=== PATIENT | female | born 1950 | race Caucasian/White ===

== ENCOUNTER 2020-07-06 12:53 | Inpatient (IN) | payer MEDICARE, SELFPAY ==
[~2020-07-06 12:53] MED LIST: Iopamidol-370 76% 500 ML 1 ML ONE
[2020-07-06 13:12] LABS: #Basophils 0.1 thou/uL (0.0-0.2); #Eosinphils 0.1 thou/uL (0.0-0.7); #Lymphocytes 1.2 thou/uL (1.20-3.40); #Monocytes 0.4 thou/uL (0.11-0.59); #Neutrophils 2.2 thou/uL (1.40-6.50); %Basophils 1.8 % (0.0-1.0); %Eosinophils 3.2 % (0.0-10.0); %Lymphocytes 30.5 % (21.0-51.0); %Monocytes 10.3 % (0.0-10.0); %Neutrophils 54.3 % (42.0-75.0); Hemoglobin 12.5 g/dL (12.0-16.0); Mean Corpuscular HGB CONC 34.1 g/dL (32.0-36.0); Mean Corpuscular Hemoglobin 31.3 pg (27.0-31.0); Mean Corpuscular Volume 91.7 fL (78.0-98.0); Mean Platelet Volume 8.9 fL (7.4-10.4); Platelet Count 196 thou/uL (130-400); Red Blood Cell (RBC) Count 3.99 mill/uL (4.20-5.40); White Blood Cell (WBC) Count 4.1 thou/uL (4.8-10.8)
[2020-07-06 13:27] LABS: INR-International Normal Ratio 0.9; PTT 26.8 sec (22.9-36.1); Prothrombin Time 12.4 sec (12.0-14.7)
[2020-07-06] MEDS ORDERED: niCARdipine 20MG In NaCl 20 MG/200 ML BAG ONE (13:27)
[2020-07-06] MEDS ORDERED: Rocuronium Bromide 10 MG/ML (10ML VIAL) ONE (13:27)
[2020-07-06 13:29] LABS: ALT (SGPT) 13 U/L (8-55); AST (SGOT) 20 U/L (5-34); Albumin 4.2 g/dL (3.4-4.8); Alkaline Phosphatase 88 U/L (40-110); Anion Gap 12 mmol/L (10-20); BUN (Urea Nitrogen) 17 mg/dL (9.8-20.1); Bilirubin, Total 0.4 mg/dL (0.2-1.2); CK (CPK) 48 U/L (29-168); Calc. Creatinine Clearance 0 mL/min (70-130); Calcium 9.8 mg/dL (7.8-10.44); Carbon Dioxide 29 mmol/L (23-31); Chloride 100 mmol/L (98-107); Glucose 131 mg/dL (80-115); Lipase 27 U/L (8-78); Potassium 3.5 mmol/L (3.5-5.1); Protein, Total 7.2 g/dL (5.8-8.1); Sodium 137 mmol/L (136-145)
[2020-07-06 14:36] LABS: Analyzer IN Cardio ER; Base Excess (BEa) 2.9 mEq/L (-2.0 to +3.0); Calcium, Ionized (arterial) 1.16 mmol/L (1.12-1.30); Carboxyhemoglobin (COHb) 0.3 gm% (0.0-3.0); Hemoglobin (Hb) 13.2 g/dL (12.0-16.0); Potassium - ABG Lab 2.86 mmol/L (3.70-5.30)
[2020-07-06 14:41] LABS: Puncture Site RRA
[2020-07-06] MEDS ORDERED: Fentanyl 100 MCG/2 ML VIAL ONE ×3 (14:42→15:14)
[2020-07-06 14:50] LABS: SARS-CoV-2 NAA Rapid Test Not Detected (NotDetected)
[2020-07-06] MEDS ORDERED: fentaNYL Citrate/PF 2,000 MCG in Sodium Chloride 0.9% 60 ML IV SCH (15:15)
[2020-07-06] MEDS ORDERED: Fentanyl BOLUS 250 ML IVPB PRN (15:30)
[2020-07-06] MEDS ORDERED: Ventilator Sedation Protocol 1 EACH FS SCH (15:30)
[2020-07-06] MEDS ORDERED: DISCONTINUE PREVIOUS NARCOTIC PAIN MEDICATIONS AND BENZODIAZEPINES FS SCH (15:30)
[2020-07-06] MEDS ORDERED: Propofol BOLUS 1,000 MG/100 ML VIAL IV PRN (15:30)
[2020-07-06] MEDS ORDERED: Propofol 1,000 MG/100 ML VIAL IV PRN (15:30)
[2020-07-06] MEDS ORDERED: Fentanyl CADD 100 ML IV SCH (15:30)
[2020-07-06] MEDS ORDERED: niCARdipine 25 MG in Sodium Chloride 0.9% 250 ML 250 ML IVPB SCH (16:15)
[2020-07-06 16:47] LABS: Bilirubin Negative (Negative); Blood, Urine Negative (Negative); Clarity Clear (Clear); Glucose, Urine (Dipstick) Normal (Negative); Ketone, Urine Negative (Negative); Leukocyte Negative Leu/uL (Negative); Nitrite Negative (Negative); Protein, Urine (Dipstick) Negative (Neg-Trace); Specific Gravity, Urine 1.033 (1.002-1.036); Urobilinogen Normal mg/dL (Less than 2)
[2020-07-06] MEDS: niCARdipine 25 MG in Sodium Chloride 0.9% 250 ML 240 ML IVPB SCH (22:01)
[2020-07-06] MEDS: Sodium Chloride 0.9% 1,000 ML IV SCH (22:05)
[2020-07-07] MEDS: niCARdipine 25 MG in Sodium Chloride 0.9% 250 ML 240 ML IVPB SCH ×3 (02:39→22:51)
[2020-07-07 04:56] LABS: #Lymphocytes 0.6 thou/uL (1.20-3.40); #Neutrophils 7.4 thou/uL (1.40-6.50); %Basophils 0.2 % (0.0-1.0); %Neutrophils 81.8 % (42.0-75.0); Hemoglobin 12.5 g/dL (12.0-16.0); Mean Corpuscular HGB CONC 32.6 g/dL (32.0-36.0); Mean Corpuscular Hemoglobin 30.2 pg (27.0-31.0); Mean Corpuscular Volume 92.4 fL (78.0-98.0); Mean Platelet Volume 9.1 fL (7.4-10.4); Platelet Count 172 thou/uL (130-400); RBC Distribution Width 11.4 % (11.5-14.5); Red Blood Cell (RBC) Count 4.16 mill/uL (4.20-5.40)
[2020-07-07 05:15] LABS: Anion Gap 12 mmol/L (10-20); BUN (Urea Nitrogen) 12 mg/dL (9.8-20.1); Calc. Creatinine Clearance 62 mL/min (70-130); Calcium 8.6 mg/dL (7.8-10.44); Carbon Dioxide 27 mmol/L (23-31); Chloride 102 mmol/L (98-107); Glucose 138 mg/dL (80-115); Potassium 3.2 mmol/L (3.5-5.1); Sodium 138 mmol/L (136-145)
[2020-07-07 07:06] LABS: Actual Bicarbonate (HCO3a) 26.6 mEq/L (22-28); Base Excess (BEa) 1.9 mEq/L (-2.0 to +3.0); Calcium, Ionized (arterial) 1.13 mmol/L (1.12-1.30); Carboxyhemoglobin (COHb) 0.3 gm% (0.0-3.0); Hemoglobin (Hb) 12.9 g/dL (12.0-16.0); O2 Tension (PaO2), arterial 176.9 mmHg (> 70.0); Potassium - ABG Lab 3.22 mmol/L (3.70-5.30); pH, Arterial 7.42 (7.35-7.45)
[2020-07-07 07:24] LABS: Puncture Site RBA
[2020-07-07] MEDS: Sodium Chloride 0.9% 1,000 ML IV SCH ×2 (12:28→18:30)
[2020-07-07] MEDS: Acetaminophen 650 MG/20.3 ML UDCUP PER TUBE PRN (15:24)
[2020-07-08] MEDS: Lorazepam 2 MG/ML VIAL SLOW IVP PRN (00:29)
[2020-07-08] MEDS: niCARdipine 25 MG in Sodium Chloride 0.9% 250 ML 240 ML IVPB SCH ×5 (03:41→23:59)
[2020-07-08 07:54] LABS: Actual Bicarbonate (HCO3a) 26.8 mEq/L (22-28); Base Excess (BEa) 3.2 mEq/L (-2.0 to +3.0); CO2 Tension 37.5 mmHg (35.0-45.0); Calcium, Ionized (arterial) 1.15 mmol/L (1.12-1.30); Carboxyhemoglobin (COHb) 0.4 gm% (0.0-3.0); Hemoglobin (Hb) 12.6 g/dL (12.0-16.0); O2 Tension (PaO2), arterial 77.7 mmHg (> 70.0); Potassium - ABG Lab 3.19 mmol/L (3.70-5.30); pH, Arterial 7.47 (7.35-7.45)
[2020-07-08 07:56] LABS: ALV-art Gradient 124.975 mmHg (0-20); Puncture Site RRA
[2020-07-08] MEDS: Sodium Chloride 0.9% 1,000 ML IV SCH (10:12)
[2020-07-08] MEDS: Acetaminophen 650 MG/20.3 ML UDCUP PER TUBE PRN ×2 (12:11→19:31)
[2020-07-08 14:50] VITALS: BP 149/67
[2020-07-09] MEDS: Sodium Chloride 0.9% 1,000 ML IV SCH (04:09)
[2020-07-09 04:46] LABS: #Lymphocytes 0.5 thou/uL (1.20-3.40); #Monocytes 1.2 thou/uL (0.11-0.59); #Neutrophils 8.8 thou/uL (1.40-6.50); %Basophils 0.3 % (0.0-1.0); %Eosinophils 0.3 % (0.0-10.0); %Lymphocytes 4.9 % (21.0-51.0); %Monocytes 11.7 % (0.0-10.0); %Neutrophils 82.8 % (42.0-75.0); Hemoglobin 11.7 g/dL (12.0-16.0); Mean Corpuscular HGB CONC 31.2 g/dL (32.0-36.0); Mean Corpuscular Hemoglobin 29.2 pg (27.0-31.0); Mean Corpuscular Volume 93.4 fL (78.0-98.0); Platelet Count 167 thou/uL (130-400); RBC Distribution Width 11.4 % (11.5-14.5); Red Blood Cell (RBC) Count 4.02 mill/uL (4.20-5.40); White Blood Cell (WBC) Count 10.6 thou/uL (4.8-10.8)
[2020-07-09 04:54] LABS: Anion Gap 9 mmol/L (10-20); BUN (Urea Nitrogen) 19 mg/dL (9.8-20.1); Calc. Creatinine Clearance 65 mL/min (70-130); Calcium 8.9 mg/dL (7.8-10.44); Carbon Dioxide 27 mmol/L (23-31); Chloride 109 mmol/L (98-107); Glucose 151 mg/dL (80-115); Potassium 3.2 mmol/L (3.5-5.1); Sodium 142 mmol/L (136-145)
[2020-07-09] MEDS: niCARdipine 25 MG in Sodium Chloride 0.9% 250 ML 240 ML IVPB SCH (05:10)
[2020-07-09 08:41] LABS: Actual Bicarbonate (HCO3a) 26.3 mEq/L (22-28); Base Excess (BEa) 2.7 mEq/L (-2.0 to +3.0); CO2 Tension 37.1 mmHg (35.0-45.0); Calcium, Ionized (arterial) 1.18 mmol/L (1.12-1.30); Carboxyhemoglobin (COHb) 0.3 gm% (0.0-3.0); Hemoglobin (Hb) 12.7 g/dL (12.0-16.0); O2 Tension (PaO2), arterial 382.4 mmHg (> 70.0); Potassium - ABG Lab 3.09 mmol/L (3.70-5.30); pH, Arterial 7.47 (7.35-7.45)
[2020-07-09 08:42] LABS: Puncture Site LRA
[2020-07-09 08:43] LABS: ALV-art Gradient -179.225 mmHg (0-20)
[2020-07-09] MEDS: Morphine 2 MG/ML VIAL SLOW IVP PRN (08:52)
[2020-07-09] MEDS: Lorazepam 2 MG/ML VIAL SLOW IVP PRN (09:02)
[2020-07-09] MEDS ORDERED: Digoxin 0.5 MG/2 ML AMP ONE ×2 (09:07→09:47)
[2020-07-09] MEDS ORDERED: Digoxin 0.5 MG/2 ML AMP SLOW IVP SCH ×2 (09:30→11:15)
[2020-07-09] MEDS ORDERED: Potassium Chloride 40 MEQ in Premix Bag 1 BAG IVPB SCH (09:30)
[2020-07-09] MEDS: Diltiazem 125 MG in Sodium Chloride 0.9% 100 ML IVPB SCH (09:42)
[2020-07-09 17:01] LABS: Potassium 3.9 mmol/L (3.5-5.1)
[2020-07-09] MEDS: Potassium Chloride 40 MEQ in Premix Bag 1 BAG IVPB SCH (21:23)
[2020-07-09] MEDS: Acetaminophen 650 MG/20.3 ML UDCUP PER TUBE PRN (22:57)
[2020-07-10] MEDS: Diltiazem 125 MG in Sodium Chloride 0.9% 100 ML IVPB SCH ×3 (02:12→13:31)
[2020-07-10 04:21] LABS: Anion Gap 9 mmol/L (10-20); BUN (Urea Nitrogen) 23 mg/dL (9.8-20.1); Calc. Creatinine Clearance 66 mL/min (70-130); Calcium 8.7 mg/dL (7.8-10.44); Carbon Dioxide 26 mmol/L (23-31); Chloride 109 mmol/L (98-107); Glucose 141 mg/dL (80-115); Magnesium 2.1 mg/dL (1.6-2.6); Potassium 3.9 mmol/L (3.5-5.1); Sodium 140 mmol/L (136-145)
[2020-07-10 04:27] LABS: Band 11 % (5-11); Lymphocytes 13 % (21-51); MDiff Complete? YES; Mean Corpuscular HGB CONC 32.1 g/dL (32.0-36.0); Mean Corpuscular Hemoglobin 30.3 pg (27.0-31.0); Mean Corpuscular Volume 94.3 fL (78.0-98.0); Mean Platelet Volume 9.8 fL (7.4-10.4); Monocytes 9 % (0-10); Neutrophil 65 % (42-75); Platelet Count 169 thou/uL (130-400); Platelet Morphology Comment Appears Adequate; RBC Distribution Width 11.3 % (11.5-14.5); RBC Morphology Normal; Reactive Lymphocytes 2 % (0-10); Red Blood Cell (RBC) Count 3.64 mill/uL (4.20-5.40); White Blood Cell (WBC) Count 7.9 thou/uL (4.8-10.8)
[2020-07-10] MEDS: Sodium Chloride 0.9% 1,000 ML IV SCH (06:31)
[2020-07-10] MEDS: Potassium Chloride 40 MEQ in Premix Bag 1 BAG IVPB SCH (09:09)
[2020-07-10] MEDS: Acetaminophen 650 MG/20.3 ML UDCUP PER TUBE PRN (09:28)
[2020-07-10] MEDS: Morphine 2 MG/ML VIAL SLOW IVP PRN (09:28)
[2020-07-10 12:34] VITALS: BMI 20.5
[2020-07-10 13:02] VITALS: TEMP 102.8
[2020-07-10] MEDS: Morphine 4 MG/ML VIAL SLOW IVP PRN ×2 (14:32→14:50)
[2020-07-10] MEDS: Lorazepam 2 MG/ML VIAL SLOW IVP PRN (14:33)
== END 2020-07-10 18:15 | disposition expired | DRG 64 ==
LOC: ERS 12:53 → CCU 13:32
PROVIDERS: ADMIT Internal Medicine; ATTEND Family Medicine
PROC: 0D9670Z Drainage of Stomach with Drainage Device, Via Natural or Artificial Opening (ICD-10-PCS; 2020-07-06)
PROC: 02HV33Z Insertion of Infusion Device into Superior Vena Cava, Percutaneous Approach (ICD-10-PCS; 2020-07-06)
PROC: 5A1955Z Respiratory Ventilation, Greater than 96 Consecutive Hours (ICD-10-PCS; principal; 2020-07-07)
PROC: 0BH18EZ Insertion of Endotracheal Airway into Trachea, Via Natural or Artificial Opening Endoscopic (ICD-10-PCS; 2020-07-07)
PROC: 0DH67UZ Insertion of Feeding Device into Stomach, Via Natural or Artificial Opening (ICD-10-PCS; 2020-07-07)
DX: I61.3 Nontraumatic intracerebral hemorrhage in brain stem (principal); J96.01 Acute respiratory failure with hypoxia; G81.94 Hemiplegia, unspecified affecting left nondominant side; G93.49 Other encephalopathy; E87.3 Alkalosis; Z51.5 Encounter for palliative care; Z66 Do not resuscitate; Z20.822 Contact with and (suspected) exposure to COVID-19; I16.0 Hypertensive urgency; E87.6 Hypokalemia; R47.89 Other speech disturbances; I10 Essential (primary) hypertension; I48.91 Unspecified atrial fibrillation; D70.9 Neutropenia, unspecified; R50.81 Fever presenting with conditions classified elsewhere; Z78.1 Physical restraint status; Z79.899 Other long term (current) drug therapy; Z87.440 Personal history of urinary (tract) infections; Z88.4 Allergy status to anesthetic agent; Z79.891 Long term (current) use of opiate analgesic
CPT/HCPCS: 0240U; 36416; 36600; 70450; 70496; 70498; 71045; 80048; 80053; 81003; 82550; 82805; 83690; 83735; 83880; 84484; 85025; 85610; 85730; 93005; 94002; 94003; J1160; J2060; J2270; J3010; J3480; J3490; J7050; Q9967